=== PATIENT | male | born 1935 | race Caucasian/White ===

== ENCOUNTER 2022-04-24 10:35 | Inpatient (IN) | payer OTHER ==
[2022-04-24 14:13] LABS: HEMATOCRIT 19.6 % (35.4-49); MCH 28.1 pg (25.7-33.7); MEAN CELL VOLUME 87.8 fl (80-96); MEAN PLT VOLUME 9.7 fl (7.5-11.1); PLATELET COUNT 190 10^3/uL (134-434); RBC 2.23 M/mm3 (4.00-5.60); RDW 15.2 % (11.9-15.9); WHITE BLOOD COUNT 5.9 K/mm3 (4.0-10.0)
[2022-04-24 14:14] LABS: HEMOGLOBIN 6.3 GM/dL (11.7-16.9)
[2022-04-24 14:18] LABS: INR 1.07 (0.83-1.09); PROTHROMBIN TIME (PATIENT) 12.3 SEC (9.7-13.0)
[2022-04-24 14:34] LABS: ALBUMIN 3.1 g/dl (3.4-5.0)
[2022-04-24 14:35] LABS: BLOOD UREA NITROGEN 66.1 mg/dL (7-18)
[2022-04-24 14:37] LABS: CREATININE 3.2 mg/dL (0.55-1.3)
[2022-04-24 14:39] LABS: BILIRUBIN,TOTAL 0.2 mg/dL (0.2-1); TOT PROT 6.7 g/dl (6.4-8.2)
[2022-04-24 15:00] LABS: ANISOCYTOSIS 2+; MACROCYTOSIS 0
[2022-04-24 15:15] LABS: ACTIVATED PTT 48.6 SECONDS (25.2-36.5)
[2022-04-24 16:56] LABS: ALBUMIN 3.5 g/dl (3.4-5.0); BILIRUBIN,TOTAL 0.2 mg/dL (0.2-1); BLOOD UREA NITROGEN 68.6 mg/dL (7-18); CALCIUM 9.3 mg/dL (8.5-10.1); CREATININE 3.3 mg/dL (0.55-1.3); TOT PROT 7.4 g/dl (6.4-8.2)
[2022-04-24] MEDS ORDERED: SODIUM ZIRCONIUM CYCLOSILICATE (LOKELMA) 5 GM PACKET ONE (17:38)
[2022-04-24] MEDS ORDERED: SODIUM ZIRCONIUM CYCLOSILICATE (LOKELMA) 5 GM PACKET PO SCH (17:45)
[2022-04-24 20:42] VITALS: BMI 22.8
[2022-04-24] MEDS: INSULIN SLIDING SCALE (NOVOLOG) 1 VIAL SQ SCH (22:06)
[2022-04-24] MEDS: hydrALAZINE HCL 50 MG TABLET (FP) PO SCH (22:07)
[2022-04-24 23:14] LABS: EPI CELLS 2 /uL (0-25.1); HYALINE CASTS 0 /uL (0-3.1); URINE APPEARANCE CLEAR; URINE BACTERIA 3 /uL (0-1359); URINE BILIRUBIN NEGATIVE (NEGATIVE); URINE COLOR YELLOW; URINE GLUCOSE (UA) NEGATIVE (NEGATIVE); URINE KETONE NEGATIVE (NEGATIVE); URINE LEUK ESTERASE NEGATIVE (NEGATIVE); URINE NITRITE NEGATIVE (NEGATIVE); URINE PROTEIN 3+ (NEGATIVE); URINE RBC 5 /uL (0-23.9); URINE UROBILINOGEN 0.2 mg/dL (0.2-1.0); URINE WBC 1 /uL (0-25.8)
[2022-04-25] MEDS: ALBUTEROL SO4 0.083% IH SOL 2.5 MG/3 ML VIAL.NEB. NEB ONE ×2 (00:47→02:22)
[2022-04-25] MEDS ORDERED: ALBUTEROL SO4 0.083% IH SOL 2.5 MG/3 ML VIAL.NEB. NEB PRN (00:47)
[2022-04-25 02:02] LABS: HEMATOCRIT 18.8 % (35.4-49); MCH 27.8 pg (25.7-33.7); MCHC 32.3 g/dl (32.0-35.9); MEAN CELL VOLUME 86.2 fl (80-96); MEAN PLT VOLUME 9.1 fl (7.5-11.1); PLATELET COUNT 193 10^3/uL (134-434); RBC 2.18 M/mm3 (4.00-5.60); RDW 15.1 % (11.9-15.9); WHITE BLOOD COUNT 4.6 K/mm3 (4.0-10.0)
[2022-04-25 02:07] LABS: HEMOGLOBIN 6.1 GM/dL (11.7-16.9)
[2022-04-25] MEDS ORDERED: DEXTROSE 50%-WATER 25 GM/50 ML DISP.SYRIN IVPUSH ONE ×2 (03:15→04:00)
[2022-04-25] MEDS ORDERED: SODIUM ZIRCONIUM CYCLOSILICATE (LOKELMA) 5 GM PACKET PO ONE (03:15)
[2022-04-25] MEDS ORDERED: INSULIN REGULAR HUMAN 100 UNITS/ML *VIAL IVPUSH ONE (03:30)
[2022-04-25] MEDS ORDERED: CALCIUM GLUCONATE IN NACL 1 GM/50 ML BAG IVPB ONE (03:57)
[2022-04-25] MEDS ORDERED: VANCOMYCIN 1 GM in D5W (PRE-DOCKED) 1,000 MG/250 ML IVPB SCH (04:00)
[2022-04-25] MEDS ORDERED: PIPERACILLIN/TAZOB 2.25 GM 2.25 GM in DEXTROSE 5%-WATER - 50 ML IVPB SCH ×2 (04:00→04:15)
[2022-04-25] MEDS ORDERED: VANCOMYCIN/WATER FOR INJ (PEG) 1,000 MG/200 ML BAG IVPB SCH (04:15)
[2022-04-25] MEDS ORDERED: DEXTROSE 50%-WATER 25 GM/50 ML DISP.SYRIN ONE (04:57)
[2022-04-25 05:09] LABS: ANISOCYTOSIS 1+; MACROCYTOSIS 1+
[2022-04-25] MEDS: hydrALAZINE HCL 50 MG TABLET (FP) PO SCH ×3 (05:31→22:23)
[2022-04-25] MEDS: INSULIN SLIDING SCALE (NOVOLOG) 1 VIAL SQ SCH ×5 (06:01→22:31)
[2022-04-25 06:46] LABS: MCH 27.6 pg (25.7-33.7); MCHC 32.1 g/dl (32.0-35.9); MEAN PLT VOLUME 9.6 fl (7.5-11.1); PLATELET COUNT 196 10^3/uL (134-434); RBC 2.09 M/mm3 (4.00-5.60); WHITE BLOOD COUNT 4.8 K/mm3 (4.0-10.0)
[2022-04-25 06:53] LABS: HEMOGLOBIN 5.8 GM/dL (11.7-16.9)
[2022-04-25 07:12] LABS: BLOOD UREA NITROGEN 63.4 mg/dL (7-18); MAGNESIUM 2.6 mg/dL (1.8-2.4)
[2022-04-25 07:13] LABS: ALBUMIN 2.9 g/dl (3.4-5.0)
[2022-04-25 07:15] LABS: PHOSPHOROUS 3.3 mg/dL (2.5-4.9)
[2022-04-25 07:16] LABS: CREATININE 3.4 mg/dL (0.55-1.3)
[2022-04-25 07:17] LABS: BILIRUBIN,TOTAL 0.4 mg/dL (0.2-1); TOT PROT 6.1 g/dl (6.4-8.2)
[2022-04-25] MEDS ORDERED: FUROSEMIDE 40 MG/4 ML INJECTABLE VIAL IVPUSH ONE ×3 (09:57→20:48)
[2022-04-25] MEDS: amLODIPine BESYLATE 5 MG TABLET (FP) PO SCH (09:57)
[2022-04-25] MEDS: NEBIVOLOL 5 MG TABLET (FP) PO SCH (09:57)
[2022-04-25] MEDS ORDERED: NEBIVOLOL 5 MG TABLET (FP) PO SCH (10:00)
[2022-04-25] MEDS ORDERED: SODIUM ZIRCONIUM CYCLOSILICATE (LOKELMA) 5 GM PACKET PO SCH (10:00)
[2022-04-25] MEDS ORDERED: amLODIPine BESYLATE 5 MG TABLET (FP) PO SCH (10:00)
[2022-04-25] MEDS ORDERED: INSULIN SLIDING SCALE (NOVOLOG) 1 VIAL SQ ONE (11:19)
[2022-04-25] MEDS: FERROUS SO4 325 MG TABLET (FP) PO SCH ×2 (11:26→22:23)
[2022-04-25] MEDS: PIPERACILLIN/TAZOB 2.25 GM 2.25 GM in DEXTROSE 5%-WATER - 50 ML IVPB SCH ×4 (12:31→19:08)
[2022-04-25] MEDS ORDERED: DEXTROSE 50%-WATER - 25 GM/50 ML VIAL IVPUSH PRN (17:42)
[2022-04-25] MEDS: ALBUTEROL SO4 0.083% IH SOL 2.5 MG/3 ML VIAL.NEB. NEB PRN (22:00)
[2022-04-26] MEDS: hydrALAZINE HCL 50 MG TABLET (FP) PO SCH ×3 (05:44→21:55)
[2022-04-26] MEDS: INSULIN SLIDING SCALE (NOVOLOG) 1 VIAL SQ SCH ×4 (06:02→22:02)
[2022-04-26] MEDS ORDERED: hydrALAZINE HCL 20 MG/ML VIAL IVPB ONE (06:04)
[2022-04-26] MEDS: ALBUTEROL SO4 0.083% IH SOL 2.5 MG/3 ML VIAL.NEB. NEB PRN (06:30)
[2022-04-26 07:19] LABS: HEMATOCRIT 28.1 % (35.4-49); HEMOGLOBIN 9.3 GM/dL (11.7-16.9); MCH 28.5 pg (25.7-33.7); MCHC 33.1 g/dl (32.0-35.9); MEAN CELL VOLUME 86.1 fl (80-96); MEAN PLT VOLUME 9.7 fl (7.5-11.1); PLATELET COUNT 227 10^3/uL (134-434); RBC 3.26 M/mm3 (4.00-5.60); RDW 14.7 % (11.9-15.9); WHITE BLOOD COUNT 7.1 K/mm3 (4.0-10.0)
[2022-04-26 07:41] LABS: ALBUMIN 3.2 g/dl (3.4-5.0); BLOOD UREA NITROGEN 72.2 mg/dL (7-18); CALCIUM 9.5 mg/dL (8.5-10.1)
[2022-04-26 07:45] LABS: CREATININE 4.1 mg/dL (0.55-1.3)
[2022-04-26 07:46] LABS: TOT PROT 6.8 g/dl (6.4-8.2)
[2022-04-26 07:47] LABS: BILIRUBIN,TOTAL 0.2 mg/dL (0.2-1)
[2022-04-26 08:56] LABS: ANISOCYTOSIS 0; HELMET CELLS 0; HOWELL-JOLLY BODIES 0; MACROCYTOSIS 0; OVALOCYTE 0; ROULEAU 0; SICKELED CELLS 0; TARGET CELLS 0; TEAR DROP CELLS 0; TOXIC GRANULATION 0
[2022-04-26] MEDS: FERROUS SO4 325 MG TABLET (FP) PO SCH ×2 (10:57→21:55)
[2022-04-26] MEDS: NEBIVOLOL 5 MG TABLET (FP) PO SCH (10:57)
[2022-04-26] MEDS: amLODIPine BESYLATE 5 MG TABLET (FP) PO SCH (10:57)
[2022-04-26] MEDS ORDERED: FUROSEMIDE 40 MG/4 ML INJECTABLE VIAL IVPUSH ONE (14:56)
[2022-04-26] MEDS ORDERED: amLODIPine BESYLATE 5 MG TABLET (FP) PO ONE (14:56)
[2022-04-26 18:26] LABS: HEMATOCRIT 29.1 % (35.4-49); HEMOGLOBIN 9.8 GM/dL (11.7-16.9); MCH 28.9 pg (25.7-33.7); MCHC 33.6 g/dl (32.0-35.9); MEAN CELL VOLUME 86.1 fl (80-96); MEAN PLT VOLUME 8.8 fl (7.5-11.1); PLATELET COUNT 220 10^3/uL (134-434); RBC 3.37 M/mm3 (4.00-5.60); RDW 15.1 % (11.9-15.9); WHITE BLOOD COUNT 7.1 K/mm3 (4.0-10.0)
[2022-04-26 18:45] LABS: ALBUMIN 2.9 g/dl (3.4-5.0); BLOOD UREA NITROGEN 72.9 mg/dL (7-18); CALCIUM 9.1 mg/dL (8.5-10.1)
[2022-04-26 18:49] LABS: ANISOCYTOSIS 2+; CREATININE 4.1 mg/dL (0.55-1.3); MACROCYTOSIS 0
[2022-04-26 18:50] LABS: BILIRUBIN,TOTAL 0.2 mg/dL (0.2-1); TOT PROT 6.6 g/dl (6.4-8.2)
[2022-04-27] MEDS ORDERED: VANCOMYCIN 1 GM in D5W (PRE-DOCKED) 1,000 MG/250 ML IVPB SCH (04:00)
[2022-04-27] MEDS ORDERED: VANCOMYCIN/WATER FOR INJ (PEG) 1,000 MG/200 ML BAG IVPB SCH (04:15)
[2022-04-27] MEDS: hydrALAZINE HCL 50 MG TABLET (FP) PO SCH ×3 (05:29→21:24)
[2022-04-27] MEDS: INSULIN SLIDING SCALE (NOVOLOG) 1 VIAL SQ SCH ×4 (06:04→21:22)
[2022-04-27] MEDS: amLODIPine BESYLATE 5 MG TABLET (FP) PO SCH (09:43)
[2022-04-27] MEDS: NEBIVOLOL 5 MG TABLET (FP) PO SCH (09:44)
[2022-04-27] MEDS: FERROUS SO4 325 MG TABLET (FP) PO SCH ×2 (09:44→21:24)
[2022-04-27 12:33] LABS: HEMATOCRIT 29.4 % (35.4-49); HEMOGLOBIN 9.7 GM/dL (11.7-16.9); MCH 28.5 pg (25.7-33.7); MCHC 32.9 g/dl (32.0-35.9); MEAN CELL VOLUME 86.6 fl (80-96); MEAN PLT VOLUME 8.8 fl (7.5-11.1); PLATELET COUNT 226 10^3/uL (134-434); RBC 3.39 M/mm3 (4.00-5.60); RDW 14.6 % (11.9-15.9); WHITE BLOOD COUNT 6.5 K/mm3 (4.0-10.0)
[2022-04-27 12:55] LABS: ALBUMIN 2.8 g/dl (3.4-5.0); BLOOD UREA NITROGEN 72.3 mg/dL (7-18); CALCIUM 9.3 mg/dL (8.5-10.1)
[2022-04-27 12:58] LABS: CREATININE 4.1 mg/dL (0.55-1.3)
[2022-04-27 13:01] LABS: BILIRUBIN,TOTAL 0.2 mg/dL (0.2-1); TOT PROT 6.3 g/dl (6.4-8.2)
[2022-04-27] MEDS ORDERED: FUROSEMIDE 40 MG/4 ML INJECTABLE VIAL IVPUSH ONE ×2 (13:06→15:30)
[2022-04-27 13:35] LABS: ANISOCYTOSIS 1+; MACROCYTOSIS 0; PLATELET ESTIMATE INCREASED
[2022-04-27 15:48] LABS: CALCIUM 9.1 mg/dL (8.5-10.1)
[2022-04-27 15:49] LABS: BLOOD UREA NITROGEN 77.9 mg/dL (7-18); MAGNESIUM 2.4 mg/dL (1.8-2.4)
[2022-04-27 15:52] LABS: CREATININE 4.2 mg/dL (0.55-1.3)
[2022-04-28] MEDS: hydrALAZINE HCL 50 MG TABLET (FP) PO SCH ×4 (06:09→21:17)
[2022-04-28] MEDS: INSULIN SLIDING SCALE (NOVOLOG) 1 VIAL SQ SCH ×4 (06:10→21:17)
[2022-04-28 09:27] LABS: HEMATOCRIT 31.5 % (35.4-49); HEMOGLOBIN 10.2 GM/dL (11.7-16.9); MCH 28.1 pg (25.7-33.7); MCHC 32.4 g/dl (32.0-35.9); MEAN CELL VOLUME 86.7 fl (80-96); MEAN PLT VOLUME 8.8 fl (7.5-11.1); PLATELET COUNT 223 10^3/uL (134-434); RBC 3.63 M/mm3 (4.00-5.60); RDW 14.9 % (11.9-15.9)
[2022-04-28] MEDS: FERROUS SO4 325 MG TABLET (FP) PO SCH ×2 (10:08→21:17)
[2022-04-28] MEDS: amLODIPine BESYLATE 5 MG TABLET (FP) PO SCH (10:08)
[2022-04-28] MEDS: NEBIVOLOL 2.5 MG TABLET (FP) PO SCH (10:08)
[2022-04-28 10:12] LABS: ALBUMIN 2.8 g/dl (3.4-5.0)
[2022-04-28 10:13] LABS: BLOOD UREA NITROGEN 84.8 mg/dL (7-18)
[2022-04-28 10:24] LABS: CREATININE 4.1 mg/dL (0.55-1.3)
[2022-04-28 10:25] LABS: BILIRUBIN,TOTAL 0.3 mg/dL (0.2-1); TOT PROT 6.2 g/dl (6.4-8.2)
[2022-04-28] MEDS ORDERED: FUROSEMIDE 40 MG/4 ML INJECTABLE VIAL IVPUSH ONE (11:22)
[2022-04-28 14:36] LABS: BLOOD UREA NITROGEN 88.3 mg/dL (7-18); CALCIUM 8.9 mg/dL (8.5-10.1)
[2022-04-28 14:39] LABS: CREATININE 4.3 mg/dL (0.55-1.3)
[2022-04-29] MEDS: hydrALAZINE HCL 50 MG TABLET (FP) PO SCH ×3 (06:07→21:09)
[2022-04-29] MEDS: INSULIN SLIDING SCALE (NOVOLOG) 1 VIAL SQ SCH ×4 (06:09→21:09)
[2022-04-29 09:01] LABS: HEMATOCRIT 29.9 % (35.4-49); MCH 29.2 pg (25.7-33.7); MCHC 33.5 g/dl (32.0-35.9); MEAN CELL VOLUME 87.3 fl (80-96); MEAN PLT VOLUME 8.6 fl (7.5-11.1); PLATELET COUNT 215 10^3/uL (134-434); RBC 3.42 M/mm3 (4.00-5.60); RDW 14.9 % (11.9-15.9); WHITE BLOOD COUNT 6.5 K/mm3 (4.0-10.0)
[2022-04-29] MEDS: amLODIPine BESYLATE 5 MG TABLET (FP) PO SCH (09:02)
[2022-04-29] MEDS: NEBIVOLOL 2.5 MG TABLET (FP) PO SCH (09:02)
[2022-04-29] MEDS: FERROUS SO4 325 MG TABLET (FP) PO SCH ×2 (09:02→21:09)
[2022-04-29 09:22] LABS: BLOOD UREA NITROGEN 96.3 mg/dL (7-18); CALCIUM 9.1 mg/dL (8.5-10.1); MAGNESIUM 2.6 mg/dL (1.8-2.4)
[2022-04-29 09:25] LABS: PHOSPHOROUS 6.4 mg/dL (2.5-4.9)
[2022-04-29 09:26] LABS: CREATININE 4.4 mg/dL (0.55-1.3)
[2022-04-29] MEDS ORDERED: FUROSEMIDE 40 MG/4 ML INJECTABLE VIAL IVPUSH ONE (11:19)
[2022-04-30] MEDS: hydrALAZINE HCL 50 MG TABLET (FP) PO SCH ×3 (06:23→21:09)
[2022-04-30] MEDS: INSULIN SLIDING SCALE (NOVOLOG) 1 VIAL SQ SCH ×4 (06:27→21:10)
[2022-04-30 08:16] LABS: HEMATOCRIT 32.3 % (35.4-49); HEMOGLOBIN 10.5 GM/dL (11.7-16.9); MCH 28.7 pg (25.7-33.7); MCHC 32.6 g/dl (32.0-35.9); MEAN PLT VOLUME 8.2 fl (7.5-11.1); PLATELET COUNT 205 10^3/uL (134-434); RBC 3.67 M/mm3 (4.00-5.60); RDW 15.2 % (11.9-15.9)
[2022-04-30 08:29] LABS: CHLORIDE 113 mmol/L (98-107); SODIUM 146 mmol/L (136-145)
[2022-04-30 08:32] LABS: GLUCOSE,RANDOM 154 mg/dL (74-106)
[2022-04-30 08:33] LABS: ANION GAP 9 MMOL/L (8-16); CALCIUM 9.1 mg/dL (8.5-10.1); CO2 23 mmol/L (21-32)
[2022-04-30 08:36] LABS: CREATININE 4.2 mg/dL (0.55-1.3); SGOT/AST 21 U/L (15-37); SGPT/ALT 24 U/L (13-61)
[2022-04-30 08:38] LABS: BILIRUBIN,TOTAL 0.3 mg/dL (0.2-1); TOT PROT 6.6 g/dl (6.4-8.2)
[2022-04-30 08:39] LABS: ALK PHOS 85 U/L (45-117)
[2022-04-30 08:41] LABS: BLOOD UREA NITROGEN 105.4 mg/dL (7-18)
[2022-04-30] MEDS: FERROUS SO4 325 MG TABLET (FP) PO SCH ×2 (09:13→21:09)
[2022-04-30] MEDS: amLODIPine BESYLATE 5 MG TABLET (FP) PO SCH (09:13)
[2022-04-30] MEDS: NEBIVOLOL 2.5 MG TABLET (FP) PO SCH (10:20)
[2022-04-30 19:06] LABS: ATYPICAL pANCA <1:20 titer (Neg:<1:20); C-ANCA <1:20 titer (Neg:<1:20)
[2022-05-01 06:17] LABS: FIBROSIS SCORE. 0.29 (0.00-0.21); HCV ALPHA 2 MACRO CHART 308 mg/dL (110-276); NECRO.INFLAM ACT.SCORE 0.07 (0.00-0.17); NECROINFLAM. ACTIVITY GRADE A0-No activity (.)
[2022-05-01] MEDS: INSULIN SLIDING SCALE (NOVOLOG) 1 VIAL SQ SCH ×4 (06:22→21:12)
[2022-05-01] MEDS: hydrALAZINE HCL 50 MG TABLET (FP) PO SCH ×3 (06:22→21:09)
[2022-05-01 08:48] LABS: HEMATOCRIT 32.6 % (35.4-49); HEMOGLOBIN 10.6 GM/dL (11.7-16.9); MCH 28.8 pg (25.7-33.7); MCHC 32.6 g/dl (32.0-35.9); MEAN CELL VOLUME 88.6 fl (80-96); MEAN PLT VOLUME 8.4 fl (7.5-11.1); PLATELET COUNT 214 10^3/uL (134-434); RBC 3.68 M/mm3 (4.00-5.60); RDW 15.3 % (11.9-15.9); WHITE BLOOD COUNT 7.2 K/mm3 (4.0-10.0)
[2022-05-01 09:09] LABS: BLOOD UREA NITROGEN 90.8 mg/dL (7-18); CALCIUM 8.9 mg/dL (8.5-10.1); MAGNESIUM 2.6 mg/dL (1.8-2.4)
[2022-05-01 09:12] LABS: CREATININE 3.9 mg/dL (0.55-1.3); PHOSPHOROUS 4.7 mg/dL (2.5-4.9)
[2022-05-01 09:13] LABS: BILIRUBIN,TOTAL 0.2 mg/dL (0.2-1); TOT PROT 6.7 g/dl (6.4-8.2)
[2022-05-01] MEDS: FERROUS SO4 325 MG TABLET (FP) PO SCH ×2 (09:44→21:09)
[2022-05-01] MEDS: amLODIPine BESYLATE 5 MG TABLET (FP) PO SCH (09:44)
[2022-05-01] MEDS: NEBIVOLOL 2.5 MG TABLET (FP) PO SCH (09:45)
[2022-05-01 12:09] LABS: ALBUMIN % 47.2 % (.); ALPHA-1 FOR UPE 10.3 % (.); TOTAL PROTEIN, URINE 124.2 mg/dL (Not Estab.)
[2022-05-02] MEDS: hydrALAZINE HCL 50 MG TABLET (FP) PO SCH (06:00)
[2022-05-02] MEDS: INSULIN SLIDING SCALE (NOVOLOG) 1 VIAL SQ SCH ×2 (06:00→11:33)
[2022-05-02 07:55] LABS: HEMATOCRIT 30.1 % (35.4-49); MCH 29.1 pg (25.7-33.7); MCHC 33.1 g/dl (32.0-35.9); MEAN CELL VOLUME 87.9 fl (80-96); PLATELET COUNT 191 10^3/uL (134-434); RBC 3.43 M/mm3 (4.00-5.60); RDW 15.2 % (11.9-15.9); WHITE BLOOD COUNT 5.4 K/mm3 (4.0-10.0)
[2022-05-02 08:10] LABS: CALCIUM 8.9 mg/dL (8.5-10.1)
[2022-05-02 08:12] LABS: ALBUMIN 2.8 g/dl (3.4-5.0); BLOOD UREA NITROGEN 88.6 mg/dL (7-18)
[2022-05-02 08:15] LABS: CREATININE 3.7 mg/dL (0.55-1.3)
[2022-05-02 08:16] LABS: BILIRUBIN,TOTAL 0.2 mg/dL (0.2-1); TOT PROT 6.3 g/dl (6.4-8.2)
[2022-05-02 08:59] VITALS: BP 144/67; PULSE 61; RESP 18; TEMP 97.6
[2022-05-02] MEDS: FERROUS SO4 325 MG TABLET (FP) PO SCH (10:00)
[2022-05-02] MEDS: amLODIPine BESYLATE 5 MG TABLET (FP) PO SCH (10:00)
[2022-05-02] MEDS: NEBIVOLOL 2.5 MG TABLET (FP) PO SCH (10:00)
== END 2022-05-02 12:54 | disposition home or self-care (01) | DRG 291 ==
LOC: JER 10:35 → JERBED 15:52 → J8W 19:01 → J4S 04-25 04:48
PROVIDERS: ADMIT Internal Medicine; ATTEND Internal Medicine
DX: I13.0 Hypertensive heart and chronic kidney disease with heart failure and stage 1 through stage 4 chronic kidney disease, or unspecified chronic kidney disease (principal); I50.33 Acute on chronic diastolic (congestive) heart failure; J96.01 Acute respiratory failure with hypoxia; N17.9 Acute kidney failure, unspecified; D64.9 Anemia, unspecified; Z95.0 Presence of cardiac pacemaker; E87.5 Hyperkalemia; E11.22 Type 2 diabetes mellitus with diabetic chronic kidney disease; G30.9 Alzheimer's disease, unspecified; F02.80 Dementia in other diseases classified elsewhere, unspecified severity, without behavioral disturbance, psychotic disturbance, mood disturbance, and anxiety; N28.1 Cyst of kidney, acquired; R68.0 Hypothermia, not associated with low environmental temperature; K76.0 Fatty (change of) liver, not elsewhere classified; E87.70 Fluid overload, unspecified; N18.30 Chronic kidney disease, stage 3 unspecified; Z79.84 Long term (current) use of oral hypoglycemic drugs; Z79.4 Long term (current) use of insulin
CPT/HCPCS: 0241U-QW; 36415; 36430; 70450-TC; 71045-TC-FY; 71250-TC; 76775-TC; 80048; 80053; 81003; 82172; 82272; 82533; 82570; 82728; 82962; 82977; 83010; 83520; 83540; 83550; 83735; 83880; 83883; 84100; 84155; 84156; 84165; 84166; 84439; 84443; 84460; 84481; 85025; 85027; 85045; 85610; 85730; 86038; 86256; 86705; 86708; 86850; 86900; 86901; 86922; 87040; 87517; 93005; 93010; 93306-TC; 94640; 97116-GP; 97162-GP; 99285-25; P9058